=== PATIENT | female | born 1940 | race Caucasian/White ===

== ENCOUNTER 2020-08-26 10:03 | Day surgery (SDC) | payer MEDICARE, OTHER ==
[~2020-08-26] VITALS: Ht 162 cm; Wt 72.0 kg
[~2020-08-26 10:03] MED LIST: ANTARA30 MG PO; Allergy Relief10 M1 PO; CENTRUM SILVER1 EAC2 PO; CLOPIDOGREL75 MG PO; COQ1050 MG PO; Curcumin1 GM PO; HYDACE5 PO; HYDCHL25 PO; JOINT CARE PO; LOSA25 PO; METO50ER PO; PROM25 PO; TYLENOL ARTHRITIS PO; VITAMIN D310 MC4 PO; ZOCOR20 MG PO
--- NOTE | 2020-08-26 11:49 | NUR ---
Ambulatory in Day Surgery History, Chart, Medications and Allergies reviewed before start of procedure.Patient confirms NPO status and agrees with scheduled surgery. Patient reports completing Chlorhexadine shower X2 prior to admission to hospital.Surgical site prepped with 2% Chlorhexidine cloth wipe. NOSIN NASAL GRAIN COMBINER DONE.
--- NOTE | 2020-08-26 11:57 | NUR ---
assumed care of patient at this time. nosins done. patient has no requests at this time.
[2020-08-27 04:29] LABS: BASOPHILS ABSOLUTE AUTO 0.05 K/mm3 (0.00-0.23); BASOPHILS PERCENT AUTO 1 % (0-2); EOSINOPHILS ABSOLUTE AUTO 0.25 K/mm3 (0.00-0.68); EOSINOPHILS PERCENT AUTO 2 % (0-6); Hematocrit 33.9 % (33.0-51.0); Hemoglobin 10.4 g/dL (11.5-16.0); IMMATURE GRAN ABSOLUTE AUTO 0.03 K/mm3 (0.00-0.10); IMMATURE GRAN PERCENT AUTO 0 % (0-1); LYMPHOCYTES PERCENT AUTO 16 % (21-46); MONOCYTES ABSOLUTE AUTO 0.98 K/mm3 (0.16-1.47); MONOCYTES PERCENT AUTO 9 % (4-13); Mean Corpuscular HGB 27.4 pg (26.0-34.0); Mean Corpuscular HGB Conc 30.7 g/dL (31.5-36.5); Mean Corpuscular Volume 89 fL (80-100); Mean Platelet Volume 9.4 fL (9.1-12.4); NEUTROPHILS ABSOLUTE AUTO 7.91 K/mm3 (1.96-9.15); NEUTROPHILS PERCENT AUTO 72 % (41-73); Platelet Count 281 K/mm3 (150-400); RDW Coefficient Variation 13.4 % (11.7-14.2); RDW Standard Deviation 43.9 fL (35.1-46.3); White Blood Cell Count 11.02 K/mm3 (4.00-11.30)
[2020-08-27 04:49] LABS: Anion Gap 7 mmol/L (6-16); Blood Urea Nitrogen 21 mg/dL (8-24); Bun/Creatinine Ratio 28.8 (12.0-20.0); CO2, Blood 28 mmol/L (21-32); Calcium, Blood 9.3 mg/dL (8.5-10.1); Chloride, Blood 105 mmol/L (98-108); Creatinine, Blood 0.73 mg/dL (0.40-1.00); Glomerular Filtration Rate >60 (60-); Glucose, Blood 95 mg/dL (70-99); Sodium, Blood 140 mmol/L (136-145)
--- NOTE | 2020-08-27 04:51 | NUR ---
SHIFT SUMMARY: PT POD#1 FOR LEFT TKA. LORENA WRAP AND AQUACEL DRESSING C/D/I WITH POLAR PACK IN PLACE. PT DENIES N/T. AMBULATING WITH SBA AND FWW. VOIDING WELL. PAIN MANAGED WITH SCHEDULED TORADOL AND TYLENOL. GIVEN 5MG OXYCODONE ONCE. PT RITESH PO. DENIES N/V. SALINE LOCKED. PLAN FOR PHYSICAL THERAPY AND POSS DISCHARGE TODAY.
[2020-08-27] MEDS ORDERED: Percocet 5-3251 EACH PO (11:44)
--- NOTE | 2020-08-27 14:09 | NUR ---
DISCHARGE CLEARED THERAPY. PAIN WELL MANAGED. EATING, DRINKING, & VOIDING WELL. SCRIPT, DRSGS, & POLAR PACK. ESCORTED OUT VIA W/C.
== END 2020-08-27 14:12 | disposition home or self-care (01) ==
LOC: ORSCMMR 10:03 → ORD 11:00 → SURS 15:26 → ORSCMMR 08-27 14:12
PROVIDERS: Orthopaedic Surgery
PROC: 0SRD0JA Replacement of Left Knee Joint with Synthetic Substitute, Uncemented, Open Approach (ICD-10-PCS; principal; 2020-08-27)
PROC: 8E0Y0CZ Robotic Assisted Procedure of Lower Extremity, Open Approach (ICD-10-PCS; principal; 2020-08-27)
DX: M17.12 Unilateral primary osteoarthritis, left knee (principal); E78.5 Hyperlipidemia, unspecified; I69.320 Aphasia following cerebral infarction; I10 Essential (primary) hypertension; Z79.01 Long term (current) use of anticoagulants; Z79.899 Other long term (current) drug therapy
CPT/HCPCS: 27447; S2900; 36415; 73560-LT; 80048; 85025; 88300; 97110; 97116; 97162; A9270; A9270-GY; C1776; J0171; J0690; J0735; J1885; J2250; J2405; J2704; J2795; J3010; J7120

== ENCOUNTER 2025-10-15 12:57 | Emergency (ER) | payer MEDICARE, OTHER ==
[~2025-10-15] VITALS: Ht 160 cm; Wt 67.0 kg
[~2025-10-15 12:57] MED LIST changes: +Percocet 5-3251 EACH PO
[2025-10-15 16:20] VITALS: BP 150/78
== END 2025-10-15 16:40 | disposition home or self-care (01) ==
LOC: ER 12:57
DX: S12.110A Anterior displaced Type II dens fracture, initial encounter for closed fracture (principal); I10 Essential (primary) hypertension; W19.XXXA Unspecified fall, initial encounter; Z79.899 Other long term (current) drug therapy; Z79.02 Long term (current) use of antithrombotics/antiplatelets; Z88.5 Allergy status to narcotic agent; Z88.8 Allergy status to other drugs, medicaments and biological substances
CPT/HCPCS: 70450; 72125; 99283-25